=== PATIENT | female | born 1985 | race African-American/Black ===

== ENCOUNTER 2022-11-11 10:56 | Observation (INO) | payer BC, OTHER ==
[2022-11-11] MEDS ORDERED: Mineral Oil ENEMA PR SCH (12:45)
[2022-11-11] MEDS: Betamet Acet/Betamet Na Ph 30 MG/5 ML VIAL IM SCH (12:55)
[2022-11-11] MEDS: Lactated Ringer's 1,000 ML IV SCH (12:56)
[2022-11-11 14:20] LABS: Creatinine, Urine 276.8 mg/dL (47-110)
[2022-11-11 14:36] LABS: #Eosinphils 0.1 10x3/uL (0.0-0.5); #Monocytes 0.9 10x3/uL (0.0-1.1); #Neutrophils 5.5 10x3/uL (1.5-8.4); %Basophils 0.5 % (0.0-2.0); %Eosinophils 0.9 % (0.0-6.0); %Lymphocytes 16.8 % (18.0-47.0); %Monocytes 11.2 % (0.0-10.0); Hematocrit 34.1 % (34.9-44.5); Hemoglobin 10.3 g/dL (12.0-15.5); Mean Corpuscular HGB CONC 30.2 g/dL (32.0-36.0); Mean Corpuscular Hemoglobin 22.1 pg (27.0-33.0); Mean Platelet Volume 11.6 fl (7.4-10.4); Platelet Count 261 10x3/uL (150-450); RBC Distribution Width 15.9 % (11.5-14.5); Red Blood Cell (RBC) Count 4.67 10x6/uL (3.90-5.03); White Blood Cell (WBC) Count 7.9 10x3/uL (3.5-10.5)
[2022-11-11 14:42] LABS: ALT (SGPT) 12 U/L (8-55); AST (SGOT) 17 U/L (5-34); Albumin 3.1 g/dL (3.5-5.0); Alkaline Phosphatase 154 U/L (40-110); Anion Gap 15 mmol/L (10-20); BUN (Urea Nitrogen) 6 mg/dL (7.0-18.7); Bilirubin, Total 0.8 mg/dL (0.2-1.2); Calc. Creatinine Clearance 0 mL/min (70-130); Calcium 8.8 mg/dL (7.8-10.44); Carbon Dioxide 20 mmol/L (22-29); Chloride 105 mmol/L (98-107); Estimated GFR 98; Globulin 3.6 g/dL (2.4-3.5); Glucose 84 mg/dL (70-105); Potassium 4.2 mmol/L (3.5-5.1); Protein, Total 6.7 g/dL (6.0-8.3); Sodium 136 mmol/L (136-145)
[2022-11-11] MEDS ORDERED: Acetaminophen 500 MG TAB PO PRN (17:43)
[2022-11-11] MEDS ORDERED: Promethazine HCl 25 MG/ML VIAL IM PRN (17:43)
[2022-11-11] MEDS ORDERED: hydrALAZINE 20 MG/ML VIAL SLOW IVP PRN (17:43)
[2022-11-11] MEDS ORDERED: Zolpidem Tartrate 5 MG TAB PO PRN (17:43)
[2022-11-11] MEDS ORDERED: Ondansetron PF 4 MG/2 ML Vial IVP PRN (17:43)
[2022-11-11] MEDS ORDERED: Oxytocin 30 units/NS 500 ML 500 ML IV SCH (17:45)
[2022-11-11 18:03] VITALS: BMI 40.5
[2022-11-12] MEDS: Docusate 100 MG CAP PO SCH ×2 (00:39→08:44)
[2022-11-12] MEDS: Lactated Ringer's 1,000 ML IV SCH (03:51)
[2022-11-12] MEDS ORDERED: Prenatal Vitamin 1 TAB PO SCH (09:00)
[2022-11-12] MEDS: Betamet Acet/Betamet Na Ph 30 MG/5 ML VIAL IM SCH (13:21)
[2022-11-12 16:01] VITALS: BP 128/76; TEMP 98.8
== END 2022-11-12 17:50 | disposition home or self-care (01) ==
LOC: CSHLD/OP 10:56 → CSHANTE 17:43 → INTOOBSV 11-12 00:22 → CSHANTE 11-12 00:22 → UNDOADMOB 11-12 00:22
PROVIDERS: ADMIT Obstetrics & Gynecology; ATTEND Obstetrics & Gynecology
DX: O30.033 Twin pregnancy, monochorionic/diamniotic, third trimester (principal); O13.3 Gestational [pregnancy-induced] hypertension without significant proteinuria, third trimester; Z3A.32 32 weeks gestation of pregnancy
CPT/HCPCS: 36415; 80053; 82570; 84156; 85025; 96372; G0378; J0702; J7120